=== PATIENT | female | born 1985 | race Two or more races ===

== ENCOUNTER 2023-04-05 08:57 | Inpatient (IN) | payer OTHER ==
[~2023-04-05] VITALS: Ht 152.4 cm; Wt 111.1 kg
[~2023-04-05 08:57] MED LIST: PRILOSEC10 M1; ZANTAC150 M3
[2023-04-08] MEDS ORDERED: CELECOXIB200 MG (07:37)
[2023-04-08] MEDS ORDERED: FAMOTIDINE20 MG (07:37)
[2023-04-08] MEDS ORDERED: PREDNISONE10 M2 (07:37)
[2023-04-08] MEDS ORDERED: PANTOPRAZOLE SO40 MG (07:38)
[2023-04-08] MEDS ORDERED: CLONAZEPAM0.5 MG (07:38)
[2023-04-08] MEDS ORDERED: RESTORIL30 MG (07:38)
[2023-04-08] MEDS ORDERED: AZATHIOPRINE50 MG (07:38)
[2023-04-08] MEDS ORDERED: PREGABALIN150 MG (07:38)
[2023-04-08] MEDS ORDERED: DULOXETINE HCL60 MG (07:38)
[2023-04-08] MEDS ORDERED: AMITRIPTYLINE100 MG (07:38)
== END 2023-04-08 14:16 | disposition home or self-care (01) | DRG 816 ==
LOC: SEC-K 08:57 → MEDJ 14:34
PROVIDERS: ADMIT Internal Medicine Hematology & Oncology; ATTEND Internal Medicine Hematology & Oncology
PROC: BW21YZZ Computerized Tomography (CT Scan) of Abdomen and Pelvis using Other Contrast (ICD-10-PCS; principal; 2023-04-05)
DX: D72.110 Idiopathic hypereosinophilic syndrome [IHES] (principal); D50.8 Other iron deficiency anemias; M06.0A Rheumatoid arthritis without rheumatoid factor, other specified site; Z20.822 Contact with and (suspected) exposure to COVID-19
CPT/HCPCS: 240